=== PATIENT | male | born 1955 | race Caucasian/White ===

== ENCOUNTER 2017-10-06 16:41 | Inpatient (IN) | payer OTHER ==
[~2017-10-06] VITALS: Ht 182.9 cm; Wt 102.8 kg
[~2017-10-06 16:41] MED LIST: ACETLIQ12 PO; GABA300C11 GT; INSUINJ32 SC; LISI-646 PO; MULTCAP45 PO; NUTRTAB PO; OMEG500C5 PO; ONDA4TAB5 PO; PROC25RS RC
[2017-10-06] MEDS ORDERED: SODIUM CHLORIDE 0.9% 1,000 ML IVB ONE (17:09)
[2017-10-06] MEDS ORDERED: ACETAMINOPHEN 325 MG TAB PO ONE (17:15)
[2017-10-06 18:03] LABS: Basophils # (auto) 0 uL; Basophils % (auto) 0.2 % (0.0-2.0); Eosinophils # (auto) 0 uL; Hematocrit 33.2 % (41.0-53.0); Hemoglobin 10.4 g/dL (13.5-17.5); Lymphocytes # (auto) 0.2 uL; Lymphocytes % (auto) 1.3 % (10.0-50.0); Mean Corpuscular Hemoglobin 29.9 pg (28.0-32.0); Mean Corpuscular Hgb Conc. 31.4 g/dL (32.0-36.0); Mean Corpuscular Volume 95.5 fL (80.0-100.0); Monocytes # (auto) 1.2 uL; Neutrophils # (auto) 15.6 uL; Neutrophils % (auto) 91.5 % (37.0-80.0); Platelet Count (auto) 196 10^3/uL (140-450); Red Blood Cells 3.48 10^6/uL (4.5-5.90); Red Cell Distribution Width 16.8 % (11.8-14.3)
[2017-10-06] MEDS ORDERED: cefTRIAXone 1GM/10ml IVPUSH 10 ML IV ONE (18:15)
[2017-10-06 18:16] LABS: INR 1.12 (0.9-1.15); Partial Thromboplastin Time 30.3 sec (22.64-33.71); Prothrombin Time 12.2 sec (9.37-12.3)
[2017-10-06 18:31] LABS: Alanine Aminotransferase 10 U/L (16-61); Albumin 2.8 g/dL (3.4-5.0); Alkaline Phosphatase 92 U/L (45-117); Anion Gap 12 (5-15); Aspartate Aminotransferase 16 U/L (15-37); BUN/Creatinine Ratio 15.1; Bilirubin, Total 0.8 mg/dL (0.2-1.0); Blood Urea Nitrogen 41 mg/dL (7-18); Calcium 8.7 mg/dL (8.5-10.1); Carbon Dioxide 22 mmol/L (21-32); Chloride 104 mmol/L (98-107); GFR African American 30 mL/min; GFR Non-African American 25 mL/min; Glucose 203 mg/dL (74-106); Potassium 4.5 mmol/L (3.5-5.1); Sodium 138 mmol/L (136-145); Total Protein 7.8 g/dL (6.4-8.2)
[2017-10-06] MEDS ORDERED: SODIUM CHLORIDE 0.9% 1,000 ML IV ONE (19:30)
[2017-10-06 19:51] LABS: Urine Bacteria NONE SEEN /hpf (None Seen); Urine Blood 1+ /uL (Negative); Urine Specific Gravity 1.015 (1.001-1.035); Urine WBC 1131 /hpf (0 - 3)
[2017-10-06] MEDS ORDERED: HYDROcodone-ACET 5/325MG TAB PO PRN (22:15)
[2017-10-06] MEDS ORDERED: ONDANSETRON HCL 4 MG/2 ML VIAL IV PRN (22:15)
[2017-10-06] MEDS ORDERED: MORPHINE SULFATE 4 MG/ML SYR/VIAL IV PRN (22:15)
[2017-10-06] MEDS: SODIUM CHLORIDE 0.9% 1,000 ML IV SCH (23:29)
[2017-10-06] MEDS: ACETAMINOPHEN 500 MG TAB PO PRN (23:29)
[2017-10-06 23:33] VITALS: BP 141/73
[2017-10-07] MEDS ORDERED: DEXTROSE (50%) 50ML SYRG IV PRN (00:30)
[2017-10-07] MEDS ORDERED: VANCOMYCIN PER PHARMACY 0 MG IV SCH (00:30)
[2017-10-07] MEDS ORDERED: VANCOMYCIN 1GM/250ML 250 ML IV ONE (01:00)
[2017-10-07 05:28] VITALS: BP 150/84
[2017-10-07 05:52] LABS: Basophils # (auto) 0 uL; Basophils % (auto) 0.4 % (0.0-2.0); Eosinophils # (auto) 0 uL; Eosinophils % (auto) 0.1 % (0.0-7.0); Hematocrit 30.5 % (41.0-53.0); Hemoglobin 9.8 g/dL (13.5-17.5); Lymphocytes # (auto) 0.2 uL; Lymphocytes % (auto) 2.2 % (10.0-50.0); Mean Corpuscular Hemoglobin 30.6 pg (28.0-32.0); Mean Corpuscular Hgb Conc. 32.2 g/dL (32.0-36.0); Mean Corpuscular Volume 94.8 fL (80.0-100.0); Monocytes # (auto) 0.9 uL; Monocytes % (auto) 7.9 % (0.0-12.0); Neutrophils % (auto) 89.4 % (37.0-80.0); Nucleated Red Blood Cells % 0.1 %; Platelet Count (auto) 181 10^3/uL (140-450); Red Blood Cells 3.21 10^6/uL (4.5-5.90); Red Cell Distribution Width 16.4 % (11.8-14.3); White Blood Cell 11.1 10^3/uL (4.4-10.8)
[2017-10-07 06:14] LABS: BUN/Creatinine Ratio 15.6; Calcium 8.1 mg/dL (8.5-10.1); Potassium 4.1 mmol/L (3.5-5.1)
[2017-10-07] MEDS: PIPERACILLIN-TAZOB 2.25GM 50 ML IV SCH ×3 (06:24→17:41)
[2017-10-07] MEDS: ACCU-CHEK COMFORT CURVE STRIP VI SCH ×4 (06:24→22:17)
[2017-10-07] MEDS: ACETAMINOPHEN 500 MG TAB PO PRN ×2 (06:29→14:27)
[2017-10-07] MEDS: InsuLIN REG 1unit/0.01ml Soln (100units/ml) SC SCH ×4 (06:30→22:00)
[2017-10-07 09:00] VITALS: BP 118/75
[2017-10-07] MEDS: LISINOPRIL 10 MG TAB PO SCH (10:15)
[2017-10-07] MEDS: SODIUM CHLORIDE 0.9% 1,000 ML IV SCH (11:35)
[2017-10-07 13:00] VITALS: BP 137/69
[2017-10-07] MEDS ORDERED: ACETAMINOPHEN 500 MG TAB PO PRN (15:30)
[2017-10-07 17:00] VITALS: BP 124/56
[2017-10-07 22:00] VITALS: BP 142/79
[2017-10-08] MEDS: VANCOMYCIN 1,500 MG in D5W 5% 250 ML IV SCH (01:34)
[2017-10-08 05:00] VITALS: BP 142/75
[2017-10-08 05:46] LABS: Basophils # (auto) 0 uL; Basophils % (auto) 0.4 % (0.0-2.0); Eosinophils # (auto) 0.1 uL; Eosinophils % (auto) 0.8 % (0.0-7.0); Hematocrit 29.4 % (41.0-53.0); Hemoglobin 9.4 g/dL (13.5-17.5); Lymphocytes # (auto) 0.4 uL; Lymphocytes % (auto) 4.7 % (10.0-50.0); Mean Corpuscular Hemoglobin 30.3 pg (28.0-32.0); Mean Corpuscular Hgb Conc. 32.1 g/dL (32.0-36.0); Mean Corpuscular Volume 94.5 fL (80.0-100.0); Monocytes % (auto) 12.1 % (0.0-12.0); Neutrophils # (auto) 6.9 uL; Nucleated Red Blood Cells % 0.1 %; Platelet Count (auto) 148 10^3/uL (140-450); Red Blood Cells 3.11 10^6/uL (4.5-5.90); Red Cell Distribution Width 16.7 % (11.8-14.3); White Blood Cell 8.4 10^3/uL (4.4-10.8)
[2017-10-08] MEDS: PIPERACILLIN-TAZOB 2.25GM 50 ML IV SCH ×5 (05:58→23:39)
[2017-10-08 06:15] LABS: BUN/Creatinine Ratio 17.3; Calcium 8.1 mg/dL (8.5-10.1); Potassium 3.7 mmol/L (3.5-5.1)
[2017-10-08] MEDS: ACCU-CHEK COMFORT CURVE STRIP VI SCH ×4 (06:41→21:51)
[2017-10-08] MEDS: InsuLIN REG 1unit/0.01ml Soln (100units/ml) SC SCH ×4 (06:41→21:51)
[2017-10-08] MEDS: LISINOPRIL 10 MG TAB PO SCH (08:36)
[2017-10-08 08:42] VITALS: BP 138/79
[2017-10-08] MEDS: SODIUM CHLORIDE 0.9% 1,000 ML IV SCH ×2 (11:15)
[2017-10-08 13:06] VITALS: BP 157/73
[2017-10-08 16:20] LABS: Magnesium 1.8 mg/dL (1.6-2.6)
[2017-10-08 16:59] VITALS: BP 149/90
[2017-10-08] MEDS: LOPERAMIDE 2 MG/10ml ORAL soln PO PRN (21:52)
[2017-10-08 22:17] VITALS: BP 155/92
[2017-10-09] MEDS: LOPERAMIDE 2 MG/10ml ORAL soln PO PRN ×3 (01:29→09:57)
[2017-10-09] MEDS: VANCOMYCIN 1,500 MG in D5W 5% 250 ML IV SCH (01:29)
[2017-10-09] MEDS: SODIUM CHLORIDE 0.9% 1,000 ML IV SCH ×2 (03:51→16:55)
[2017-10-09 05:27] VITALS: BP 158/87
[2017-10-09 05:31] LABS: Basophils # (auto) 0 uL; Basophils % (auto) 0.6 % (0.0-2.0); Eosinophils # (auto) 0.2 uL; Eosinophils % (auto) 2.4 % (0.0-7.0); Hematocrit 28.2 % (41.0-53.0); Hemoglobin 9.1 g/dL (13.5-17.5); Lymphocytes # (auto) 0.4 uL; Lymphocytes % (auto) 5.8 % (10.0-50.0); Mean Corpuscular Hemoglobin 30.7 pg (28.0-32.0); Mean Corpuscular Hgb Conc. 32.2 g/dL (32.0-36.0); Mean Corpuscular Volume 95.3 fL (80.0-100.0); Monocytes # (auto) 0.9 uL; Monocytes % (auto) 12.3 % (0.0-12.0); Neutrophils # (auto) 5.9 uL; Neutrophils % (auto) 78.9 % (37.0-80.0); Nucleated Red Blood Cells % 0.1 %; Platelet Count (auto) 167 10^3/uL (140-450); Red Blood Cells 2.96 10^6/uL (4.5-5.90); Red Cell Distribution Width 16.8 % (11.8-14.3); White Blood Cell 7.4 10^3/uL (4.4-10.8)
[2017-10-09 05:59] LABS: Anion Gap 8 (5-15); BUN/Creatinine Ratio 16.4; Blood Urea Nitrogen 29 mg/dL (7-18); Calcium 7.8 mg/dL (8.5-10.1); Carbon Dioxide 21 mmol/L (21-32); Chloride 105 mmol/L (98-107); GFR African American 50 mL/min; GFR Non-African American 41 mL/min; Glucose 191 mg/dL (74-106); Potassium 3.2 mmol/L (3.5-5.1); Sodium 134 mmol/L (136-145)
[2017-10-09] MEDS: ACCU-CHEK COMFORT CURVE STRIP VI SCH ×3 (06:35→17:00)
[2017-10-09] MEDS: InsuLIN REG 1unit/0.01ml Soln (100units/ml) SC SCH ×3 (06:35→17:00)
[2017-10-09] MEDS: PIPERACILLIN-TAZOB 2.25GM 50 ML IV SCH ×3 (06:35→18:00)
[2017-10-09 08:00] VITALS: BP 123/72
[2017-10-09 09:00] VITALS: BP 123/72
[2017-10-09] MEDS: LISINOPRIL 10 MG TAB PO SCH (09:57)
[2017-10-09 13:00] VITALS: BP 152/95
[2017-10-09 15:19] VITALS: BP 123/72
== END 2017-10-09 17:58 | disposition home or self-care (01) | DRG 871 ==
LOC: ER 16:41 → TELE 16:42 → TELE-WESTW 23:06
PROVIDERS: ADMIT Nurse Practitioner Family; ATTEND Internal Medicine Geriatric Medicine
DX: A41.01 Sepsis due to Methicillin susceptible Staphylococcus aureus (principal); J18.1 Lobar pneumonia, unspecified organism; C78.7 Secondary malignant neoplasm of liver and intrahepatic bile duct; C78.00 Secondary malignant neoplasm of unspecified lung; E11.22 Type 2 diabetes mellitus with diabetic chronic kidney disease; E66.01 Morbid (severe) obesity due to excess calories; N39.0 Urinary tract infection, site not specified; D50.8 Other iron deficiency anemias; E86.0 Dehydration; I25.10 Atherosclerotic heart disease of native coronary artery without angina pectoris; I12.9 Hypertensive chronic kidney disease with stage 1 through stage 4 chronic kidney disease, or unspecified chronic kidney disease; I44.0 Atrioventricular block, first degree; I45.10 Unspecified right bundle-branch block; K21.9 Gastro-esophageal reflux disease without esophagitis; N18.3 Chronic kidney disease, stage 3 (moderate); Z79.4 Long term (current) use of insulin; Z79.899 Other long term (current) drug therapy; Z82.49 Family history of ischemic heart disease and other diseases of the circulatory system; Z85.038 Personal history of other malignant neoplasm of large intestine; Z90.49 Acquired absence of other specified parts of digestive tract; Z92.21 Personal history of antineoplastic chemotherapy; Z93.2 Ileostomy status; Z93.3 Colostomy status; Z68.30 Body mass index [BMI] 30.0-30.9, adult
CPT/HCPCS: 36415; 51702; 71045; 71250; 80048; 80053; 80202; 81001; 82962; 83036; 83605; 83735; 84484; 85025; 85610; 85730; 87040; 87077; 87086; 87088; 87147; 87186; 94761; 96361; 96374; J1815; J2543; J7060

== ENCOUNTER 2019-05-17 13:17 | Emergency (ER) | payer OTHER ==
[~2019-05-17] VITALS: Ht 182.9 cm; Wt 89.8 kg
[~2019-05-17 13:17] MED LIST changes: +ONDA-144 PO; -ONDA4TAB5 PO
[2019-05-17] MEDS ORDERED: MORPHINE SULFATE 4 MG/ML SYR/VIAL IV ONE (15:45)
[2019-05-17] MEDS ORDERED: ONDANSETRON HCL 4 MG/2 ML VIAL IV ONE (15:45)
[2019-05-17 17:03] LABS: Hematocrit 26.7 % (41.0-53.0); Hemoglobin 8.8 g/dL (13.5-17.5); Mean Corpuscular Hemoglobin 32.7 pg (28.0-32.0); Mean Corpuscular Hgb Conc. 32.9 g/dL (32.0-36.0); Mean Corpuscular Volume 99.5 fL (80.0-100.0); Platelet Count (auto) 310 10^3/uL (140-450); Red Blood Cells 2.68 10^6/uL (4.5-5.90); Red Cell Distribution Width 18.7 % (11.8-14.3); White Blood Cell 4.7 10^3/uL (4.4-10.8)
[2019-05-17 17:06] LABS: Band Neutrophils % (manual) 0; Basophils % (manual) 0 (0.0-2.0); Blast Cells 0; Eosinophils % (manual) 0 (0-7); Metamyelocytes % 0; Myelocytes % 0; Promyelocytes % 0; Reactive Lymphocytes 0
[2019-05-17 17:12] LABS: Albumin 2.8 g/dL (3.4-5.0); Calcium 8.6 mg/dL (8.5-10.1)
[2019-05-17 17:15] LABS: BUN/Creatinine Ratio 22.1; Bilirubin, Total 0.3 mg/dL (0.2-1.0); Total Protein 7.4 g/dL (6.4-8.2)
[2019-05-17 17:16] LABS: INR 1.15 (0.9-1.15); Partial Thromboplastin Time 29.1 sec (23.64-32.05)
[2019-05-17 17:18] LABS: Potassium 5.9 mmol/L (3.5-5.1)
[2019-05-17 18:11] LABS: Lymphocytes % (manual) 11 (10.0-50.0)
[2019-05-17 18:12] LABS: Monocytes % (manual) 25 (0-12)
[2019-05-17] MEDS ORDERED: SODIUM BICARBONATE 8.4 % INJ 50ML VIAL IV ONE (18:15)
[2019-05-17] MEDS ORDERED: ALBUTEROL SULF 2.5 MG/0.5ML(0.5%) NEB SOLN HHN ONE (18:15)
[2019-05-17] MEDS ORDERED: CALCIUM GLUC 4.65meq/50ml D5AE 50 ML IV ONE (18:15)
[2019-05-17 18:37] VITALS: BP 126/76
== END 2019-05-17 18:59 | disposition short-term general hospital (02) ==
LOC: ER 13:17
DX: S72.352A Displaced comminuted fracture of shaft of left femur, initial encounter for closed fracture (principal); E87.5 Hyperkalemia; E11.9 Type 2 diabetes mellitus without complications; I10 Essential (primary) hypertension; Z90.89 Acquired absence of other organs; Z79.4 Long term (current) use of insulin; Z79.899 Other long term (current) drug therapy; W22.8XXA Striking against or struck by other objects, initial encounter; Y93.89 Activity, other specified; Y92.89 Other specified places as the place of occurrence of the external cause; Y99.8 Other external cause status
CPT/HCPCS: 29505; 36415; 73562; 73700; 80053; 85007; 85027; 85610; 85730; 94640; 94761; 96374; 96375; 99285; J2270; J2405; J7611

== ENCOUNTER 2019-11-06 14:17 | Inpatient (IN) | payer OTHER ==
[~2019-11-06] VITALS: Ht 182.9 cm; Wt 66.5 kg
[~2019-11-06 14:17] MED LIST changes: +PIPERACILLIN-TAZOB 3.375GM 100 ML IV SCH
[2019-11-06] MEDS ORDERED: ASCORBIC ACID 500 MG TAB PO ONE (15:45)
[2019-11-06] MEDS ORDERED: ZINC SULFATE 220mg CAP or TAB PO ONE (15:45)
[2019-11-06] MEDS ORDERED: cefTRIAXone 1GM/50ML D5W 50 ML IV ONE (15:45)
[2019-11-06] MEDS ORDERED: AZITHROMYCIN 500MG/ 250ML 250 ML IV ONE (15:45)
[2019-11-06 15:55] LABS: Anion Gap 14 (5-15); BUN/Creatinine Ratio 22.4; Blood Urea Nitrogen 32 mg/dL (7-18); Calcium 8.8 mg/dL (8.5-10.1); Carbon Dioxide 17 mmol/L (21-32); Chloride 105 mmol/L (98-107); GFR African American 64 mL/min; GFR Non-African American 53 mL/min; Glucose 109 mg/dL (74-106); Magnesium 1.9 mg/dL (1.6-2.6); Potassium 4.6 mmol/L (3.5-5.1); Sodium 136 mmol/L (136-145)
[2019-11-06 15:59] LABS: Basophils # (auto) 0.1 10 ^3/uL (0-0.2); Basophils % (auto) 0.7 % (0.0-2.0); Eosinophils # (auto) 0.1 10 ^3/uL (0-0.8); Eosinophils % (auto) 0.7 % (0.0-7.0); Hematocrit 35.6 % (41.0-53.0); Hemoglobin 11.5 g/dL (13.5-17.5); INR 1.46 (0.9-1.15); Lymphocytes # (auto) 1.7 10 ^3/uL (0.4-5.4); Lymphocytes % (auto) 12.3 % (10.0-50.0); Mean Corpuscular Hemoglobin 29.8 pg (28.0-32.0); Mean Corpuscular Hgb Conc. 32.3 g/dL (32.0-36.0); Mean Corpuscular Volume 92.2 fL (80.0-100.0); Neutrophils % (auto) 79.3 % (37.0-80.0); Partial Thromboplastin Time 27.7 sec (23.64-32.05); Platelet Count (auto) 210 10^3/uL (140-450); Red Blood Cells 3.86 10^6/uL (4.5-5.90); Red Cell Distribution Width 19.7 % (11.8-14.3); White Blood Cell 13.9 10^3/uL (4.4-10.8)
[2019-11-06 16:11] LABS: Alanine Aminotransferase 38 U/L (16-61); Alkaline Phosphatase 1082 U/L (45-117); Aspartate Aminotransferase 122 U/L (15-37); Bilirubin, Total 1.2 mg/dL (0.2-1.0); Total Protein 6.9 g/dL (6.4-8.2)
[2019-11-06 16:47] LABS: Urine Bacteria FEW /hpf (None Seen); Urine Blood 2+ /uL (Negative); Urine Hyaline Cast FEW /lpf (0 - 2); Urine Specific Gravity 1.017 (1.001-1.035); Urine WBC 566 /hpf (0 - 3); Urine WBC Clumps PRESENT /hpf (None Seen)
[2019-11-06] MEDS ORDERED: VANCOMYCIN PER PHARMACY 0 MG IV SCH (17:30)
[2019-11-06] MEDS ORDERED: LACTATED RINGER S IV ONE (17:30)
[2019-11-06] MEDS ORDERED: MORPHINE SULF INJ 2 MG/ML SYRINGE 1ML IV PRN (17:30)
[2019-11-06] MEDS ORDERED: PIPERACILLIN-TAZOB 3.375GM 100 ML IV ONE (17:30)
[2019-11-06] MEDS ORDERED: NITROGLYCERIN 0.4 MG SL TAB SL PRN ×2 (17:30→22:00)
[2019-11-06] MEDS: FUROSEMIDE 20 MG/2 ML VIAL IV SCH (18:44)
[2019-11-06] MEDS: PIPERACILLIN-TAZOB 3.375GM 100 ML IV SCH (19:42)
[2019-11-06] MEDS: SODIUM CHLORIDE 0.9% 1,000 ML IV SCH (19:42)
--- NOTE | 2019-11-06 19:59 | NUR ---
Telemetry admit from [facility] admitted to Telemetry unit after SBAR received. Patient oriented to Nlelie worley RN, unit, room, bed, and unit policies regarding patient care and visiting hours. Patient now on continuous telemetry monitoring, tele box # [id number] and telemetry reading on arrival to unit is SR 94. Patient placed on bedside oxygen, weighed by bed scale and encouraged to call if they need something. All questions and concerns addressed, patient verbalized understanding. Note: Came per bed awake alert oriented x 4,not in respiratory distress, placed in the bed comfortably, vital signs checked.
[2019-11-06 20:15] VITALS: BP 140/87
--- NOTE | 2019-11-06 20:52 | NUR ---
Relayed to Shala Quevedo that no order for diet, and no pain med. for back pain, with order of consistent carb. diet and [place] 5/325mg.p.o one tab. every 8hours as needed.
[2019-11-06] MEDS ORDERED: LISI-646 PO (20:55)
[2019-11-06] MEDS ORDERED: METO-169 PO (20:55)
[2019-11-06] MEDS ORDERED: HYDR-4833 PO (20:56)
[2019-11-06] MEDS ORDERED: GABA300C10 PO (20:56)
[2019-11-06] MEDS: HYDROcodone-ACET 5/325MG TAB PO PRN (21:04)
--- NOTE | 2019-11-06 21:04 | NUR ---
Medicated with one tab. [place] 5/325mg.for back pain 12/29, and at 2204, seen asleep.
[2019-11-06] MEDS ORDERED: ONDANSETRON HCL 4 MG/2 ML VIAL IV PRN (22:00)
[2019-11-06] MEDS ORDERED: DEXTROSE (50%) 50ML SYRG IV PRN (22:00)
[2019-11-06] MEDS ORDERED: LORazepam 0.5 MG TAB PO PRN (22:00)
[2019-11-06] MEDS: VANCOMYCIN 1GM/250ML 250 ML IV SCH (22:20)
[2019-11-06] MEDS: METOPROLOL TARTRATE 25 MG TAB PO SCH (22:21)
[2019-11-07] MEDS: PIPERACILLIN-TAZOB 3.375GM 100 ML IV SCH ×3 (00:44→12:00)
[2019-11-07] MEDS: ACCU-CHEK COMFORT CURVE STRIP VI SCH ×4 (00:45→13:49)
[2019-11-07] MEDS: InsuLIN REG 1unit/0.01ml Soln (100units/ml) SC SCH ×4 (00:49→13:49)
[2019-11-07] MEDS: HYDROcodone-ACET 10/325MG TAB PO PRN ×2 (02:27→08:39)
--- NOTE | 2019-11-07 02:27 | NUR ---
Medicated with [place] 10/325mg.one tab..p.o for pain level of 10/10, at at 0327 seen patient asleep.
[2019-11-07 05:00] VITALS: BP 132/82
[2019-11-07] MEDS: HYDROcodone-ACET 5/325MG TAB PO PRN (05:07)
[2019-11-07 06:03] LABS: Basophils # (auto) 0.1 10 ^3/uL (0-0.2); Basophils % (auto) 0.6 % (0.0-2.0); Eosinophils # (auto) 0.2 10 ^3/uL (0-0.8); Eosinophils % (auto) 1.7 % (0.0-7.0); Hemoglobin 10.4 g/dL (13.5-17.5); Lymphocytes % (auto) 6.6 % (10.0-50.0); Mean Corpuscular Hemoglobin 29.5 pg (28.0-32.0); Mean Corpuscular Hgb Conc. 32.5 g/dL (32.0-36.0); Mean Corpuscular Volume 90.9 fL (80.0-100.0); Monocytes # (auto) 1.2 10 ^3/uL (0-1.3); Monocytes % (auto) 8.3 % (0.0-12.0); Neutrophils # (auto) 11.9 10 ^3/uL (1.6-8.6); Neutrophils % (auto) 82.8 % (37.0-80.0); Platelet Count (auto) 184 10^3/uL (140-450); Red Blood Cells 3.52 10^6/uL (4.5-5.90); Red Cell Distribution Width 19.4 % (11.8-14.3); White Blood Cell 14.4 10^3/uL (4.4-10.8)
[2019-11-07] MEDS: FUROSEMIDE 20 MG/2 ML VIAL IV SCH (06:09)
[2019-11-07 06:20] LABS: INR 1.49 (0.9-1.15); Partial Thromboplastin Time 34.4 sec (23.64-32.05)
[2019-11-07 06:23] LABS: Potassium 4.2 mmol/L (3.5-5.1)
[2019-11-07 06:44] LABS: Albumin 1.7 g/dL (3.4-5.0); BUN/Creatinine Ratio 24.3; Bilirubin, Total 1.2 mg/dL (0.2-1.0); Magnesium 1.8 mg/dL (1.6-2.6); Phosphorus 2.8 mg/dL (2.5-4.90); Total Protein 6.2 g/dL (6.4-8.2)
[2019-11-07] MEDS: SODIUM CHLORIDE 0.9% 1,000 ML IV SCH (06:50)
--- NOTE | 2019-11-07 07:30 | NUR ---
RECEIVED REPORT FROM NIGHT NURSE. PATIENT RESTING IN BED, NO DISTRESS NOTED. BED ALARM ON. WILL CONTINUE TO MONITOR.
--- NOTE | 2019-11-07 07:37 | NUR ---
Report given to Horacio Ramirez, patient is resting no distress.
[2019-11-07 09:00] VITALS: BP 110/76
[2019-11-07] MEDS ORDERED: ASPirin 81 mg TAB PO SCH (10:00)
[2019-11-07] MEDS ORDERED: ENOXAPARIN SOD 40 MG/0.4 ML SYRINGE SC SCH (10:00)
[2019-11-07] MEDS ORDERED: LISINOPRIL 10 MG TAB PO SCH (10:00)
[2019-11-07] MEDS ORDERED: DOCUSATE SOD 100 MG CAP PO SCH (10:00)
[2019-11-07] MEDS: METOPROLOL TARTRATE 25 MG TAB PO SCH (10:07)
[2019-11-07 13:00] VITALS: BP 99/63
--- NOTE | 2019-11-07 13:20 | NUR ---
PAGED CARPENTER STREETCAR SMOKE JUMPER.
--- NOTE | 2019-11-07 13:38 | NUR ---
SPOKE WITH MONO, IN CONSERVATION SCIENCE TEACHER. FAXED INFORMATION TO [facility].
[2019-11-07] MEDS: VANCOMYCIN 1GM/250ML 250 ML IV SCH (14:00)
--- NOTE | 2019-11-07 16:21 | NUR ---
SPOKE WITH MONO, ORTHOPEDIC PHYSICIAN. [facility] PATIENT GIVEN NAME AND NUMBER. #[phone]
--- NOTE | 2019-11-07 17:23 | NUR ---
Discharge instructions given as ordered. Encourage to follow up with PMD as instructed. All questions and concerns addressed. Patient verbalized understanding. Medication reconciliation form completed and copy given to patient. IV'S removed with catheters intact, pressure dressings applied. Telemetry unit returned to ICU. Patient taken to vehicle via wheelchair with all personal belongings, accompanied by staff and family member. No distress noted at time of departure.
--- NOTE | 2019-11-09 09:59 | NUR ---
Weekend marketing communications manager 11/07/19 1344 I received a page from nurse Ashley letting me know that this patient is discharging home and needs home health safety eval. I called [facility] and spoke with Charity-she will arrange home health through [facility]-I relayed this information to nurse Ramirez and provided her with phone number to give to patient. I faxed home health order to [facility].
== END 2019-11-07 17:26 | disposition home health service (06) | DRG 193 ==
LOC: ER 14:17 → TELE 14:18 → TELE-CENTR 20:02
PROVIDERS: ADMIT Hospitalist; ATTEND Hospitalist
DX: J18.9 Pneumonia, unspecified organism (principal); E43 Unspecified severe protein-calorie malnutrition; N17.0 Acute kidney failure with tubular necrosis; C78.00 Secondary malignant neoplasm of unspecified lung; C78.7 Secondary malignant neoplasm of liver and intrahepatic bile duct; Z68.1 Body mass index [BMI] 19.9 or less, adult; C26.9 Malignant neoplasm of ill-defined sites within the digestive system; E11.22 Type 2 diabetes mellitus with diabetic chronic kidney disease; I12.9 Hypertensive chronic kidney disease with stage 1 through stage 4 chronic kidney disease, or unspecified chronic kidney disease; N18.9 Chronic kidney disease, unspecified; Z96.653 Presence of artificial knee joint, bilateral; D63.8 Anemia in other chronic diseases classified elsewhere; Z79.899 Other long term (current) drug therapy; Z90.89 Acquired absence of other organs; Z82.49 Family history of ischemic heart disease and other diseases of the circulatory system; Z85.048 Personal history of other malignant neoplasm of rectum, rectosigmoid junction, and anus; D63.0 Anemia in neoplastic disease
CPT/HCPCS: 36415; 71045; 80053; 81001; 82962; 83605; 83735; 84100; 84484; 85025; 85610; 85730; 86850; 86900; 86901; 87040; 87086; 93005; G0378; J0696; J1815; J2543

== ENCOUNTER 2019-11-11 21:17 | Inpatient (IN) | payer OTHER ==
[~2019-11-11] VITALS: Ht 182.9 cm; Wt 138.0 kg
[~2019-11-11 21:17] MED LIST changes: -ACETLIQ12 PO; +GABA300C10 PO; -GABA300C11 GT; +HYDR-4833 PO; -INSUINJ32 SC; +METO-169 PO; -MULTCAP45 PO; -NUTRTAB PO; -OMEG500C5 PO; -ONDA-144 PO; -PIPERACILLIN-TAZOB 3.375GM 100 ML IV SCH; -PROC25RS RC
[2019-11-11 21:59] LABS: Basophils # (auto) 0.1 10 ^3/uL (0-0.2); Basophils % (auto) 0.7 % (0.0-2.0); Eosinophils # (auto) 0.1 10 ^3/uL (0-0.8); Eosinophils % (auto) 0.8 % (0.0-7.0); Hematocrit 33.7 % (41.0-53.0); Hemoglobin 10.7 g/dL (13.5-17.5); Lymphocytes % (auto) 17.7 % (10.0-50.0); Mean Corpuscular Hemoglobin 29.1 pg (28.0-32.0); Mean Corpuscular Hgb Conc. 31.7 g/dL (32.0-36.0); Mean Corpuscular Volume 91.6 fL (80.0-100.0); Monocytes # (auto) 0.8 10 ^3/uL (0-1.3); Neutrophils # (auto) 12.6 10 ^3/uL (1.6-8.6); Neutrophils % (auto) 75.8 % (37.0-80.0); Platelet Count (auto) 241 10^3/uL (140-450); Red Blood Cells 3.68 10^6/uL (4.5-5.90); Red Cell Distribution Width 19.6 % (11.8-14.3); White Blood Cell 16.7 10^3/uL (4.4-10.8)
[2019-11-11 22:15] LABS: Albumin 2.1 g/dL (3.4-5.0); Calcium 8.6 mg/dL (8.5-10.1); Potassium 4.8 mmol/L (3.5-5.1)
[2019-11-11 22:30] LABS: BUN/Creatinine Ratio 20.8; Bilirubin, Total 0.9 mg/dL (0.2-1.0); Total Protein 7.1 g/dL (6.4-8.2)
[2019-11-11] MEDS ORDERED: ONDANSETRON HCL 4 MG/2 ML VIAL IV ONE (22:30)
[2019-11-11] MEDS ORDERED: MORPHINE SULFATE 4 MG/ML SYR/VIAL IV ONE (22:30)
[2019-11-12] MEDS ORDERED: MORPHINE SULFATE 4 MG/ML SYR/VIAL IV ONE ×2 (01:30→05:00)
[2019-11-12] MEDS ORDERED: ONDANSETRON HCL 4 MG/2 ML VIAL IV ONE ×2 (01:30→05:00)
[2019-11-12 02:47] LABS: INR 1.4 (0.9-1.15); Partial Thromboplastin Time 35.1 sec (23.64-32.05)
[2019-11-12] MEDS ORDERED: SODIUM CHLORIDE 0.9% 500 ML IV ONE ×2 (06:45→07:00)
[2019-11-12] MEDS ORDERED: ACETAMINOPHEN 325 MG TAB PO PRN (09:30)
[2019-11-12] MEDS ORDERED: NITROGLYCERIN 0.4 MG SL TAB SL PRN (09:30)
[2019-11-12] MEDS ORDERED: DEXTROSE (50%) 50ML SYRG IV ONE (09:30)
[2019-11-12] MEDS ORDERED: HYDROcodone-ACET 5/325MG TAB PO PRN (09:30)
[2019-11-12] MEDS ORDERED: METOPROLOL SUCCINATE XL 50 MG TAB PO ONE (09:45)
[2019-11-12] MEDS ORDERED: cefTRIAXone 1GM/50ML D5W 50 ML IV ONE (09:45)
[2019-11-12] MEDS ORDERED: CLINDAMYCIN 600MG IV 50 ML IV ONE (09:45)
[2019-11-12] MEDS: SODIUM CHLORIDE 0.9% 1,000 ML IV SCH ×2 (09:51→23:02)
[2019-11-12] MEDS ORDERED: cefTRIAXone 1GM/50ML D5W 50 ML IV SCH ×2 (10:00)
[2019-11-12] MEDS: METOPROLOL SUCCINATE XL 50 MG TAB PO SCH (10:00)
[2019-11-12] MEDS: ONDANSETRON HCL 4 MG/2 ML VIAL IV PRN (10:06)
[2019-11-12] MEDS: MORPHINE SULF INJ 2 MG/ML SYRINGE 1ML IV PRN ×2 (10:07→13:32)
[2019-11-12 10:47] LABS: Basophils # (auto) 0.2 10 ^3/uL (0-0.2); Basophils % (auto) 0.9 % (0.0-2.0); Eosinophils # (auto) 0.2 10 ^3/uL (0-0.8); Eosinophils % (auto) 0.9 % (0.0-7.0); Hematocrit 35.5 % (41.0-53.0); Hemoglobin 10.9 g/dL (13.5-17.5); Lymphocytes % (auto) 17.4 % (10.0-50.0); Mean Corpuscular Hemoglobin 28.8 pg (28.0-32.0); Mean Corpuscular Hgb Conc. 30.6 g/dL (32.0-36.0); Mean Corpuscular Volume 94.1 fL (80.0-100.0); Monocytes # (auto) 0.9 10 ^3/uL (0-1.3); Monocytes % (auto) 5.3 % (0.0-12.0); Neutrophils # (auto) 13.1 10 ^3/uL (1.6-8.6); Neutrophils % (auto) 75.5 % (37.0-80.0); Platelet Count (auto) 193 10^3/uL (140-450); Red Blood Cells 3.77 10^6/uL (4.5-5.90); Red Cell Distribution Width 19.7 % (11.8-14.3); White Blood Cell 17.4 10^3/uL (4.4-10.8)
[2019-11-12] MEDS ORDERED: NOREPINEPHRINE 8 MG/250ML KIT 250 ML IV ONE (10:51)
[2019-11-12 10:53] LABS: Albumin 1.9 g/dL (3.4-5.0); Calcium 8.4 mg/dL (8.5-10.1); Magnesium 2.1 mg/dL (1.6-2.6); Potassium 4.9 mmol/L (3.5-5.1)
[2019-11-12 10:56] LABS: BUN/Creatinine Ratio 20.7; Bilirubin, Total 0.9 mg/dL (0.2-1.0); Total Protein 6.8 g/dL (6.4-8.2)
[2019-11-12] MEDS: NOREPINEPHRINE 8 MG/250ML KIT 250 ML IV SCH (11:10)
[2019-11-12] MEDS ORDERED: ACCU-CHEK COMFORT CURVE STRIP VI ONE (11:30)
[2019-11-12] MEDS ORDERED: InsuLIN REG 1unit/0.01ml Soln (100units/ml) SC ONE (11:30)
[2019-11-12] MEDS: GABAPENTIN 300 MG CAP PO SCH ×3 (11:52→22:07)
[2019-11-12] MEDS ORDERED: CLINDAMYCIN 600MG IV 50 ML IV SCH (14:00)
[2019-11-12] MEDS: LINEZOLID 600MG/300ML 300 ML IV SCH (22:07)
[2019-11-13] MEDS: MORPHINE SULF INJ 2 MG/ML SYRINGE 1ML IV PRN ×4 (01:32→18:51)
[2019-11-13] MEDS: PIPERACILLIN-TAZOB 2.25GM 50 ML IV SCH ×4 (05:30→18:30)
[2019-11-13] MEDS: GABAPENTIN 300 MG CAP PO SCH ×3 (05:30→23:11)
[2019-11-13 06:41] LABS: Basophils # (auto) 0.2 10 ^3/uL (0-0.2); Basophils % (auto) 0.8 % (0.0-2.0); Eosinophils # (auto) 0.2 10 ^3/uL (0-0.8); Eosinophils % (auto) 0.9 % (0.0-7.0); Hematocrit 33.4 % (41.0-53.0); Hemoglobin 10.6 g/dL (13.5-17.5); Lymphocytes # (auto) 2.2 10 ^3/uL (0.4-5.4); Lymphocytes % (auto) 11.2 % (10.0-50.0); Mean Corpuscular Hemoglobin 29.1 pg (28.0-32.0); Mean Corpuscular Hgb Conc. 31.7 g/dL (32.0-36.0); Monocytes # (auto) 1.4 10 ^3/uL (0-1.3); Monocytes % (auto) 7.3 % (0.0-12.0); Neutrophils # (auto) 15.8 10 ^3/uL (1.6-8.6); Neutrophils % (auto) 79.8 % (37.0-80.0); Platelet Count (auto) 250 10^3/uL (140-450); Red Blood Cells 3.63 10^6/uL (4.5-5.90); Red Cell Distribution Width 19.3 % (11.8-14.3); White Blood Cell 19.8 10^3/uL (4.4-10.8)
[2019-11-13] MEDS: NOREPINEPHRINE 8 MG/250ML KIT 250 ML IV SCH (07:00)
[2019-11-13 07:01] LABS: Albumin 1.8 g/dL (3.4-5.0); Calcium 8.4 mg/dL (8.5-10.1); Magnesium 2.1 mg/dL (1.6-2.6)
[2019-11-13 07:17] LABS: BUN/Creatinine Ratio 19.1; Bilirubin, Total 1.3 mg/dL (0.2-1.0); Total Protein 6.6 g/dL (6.4-8.2)
[2019-11-13 07:20] LABS: Potassium 5.6 mmol/L (3.5-5.1)
[2019-11-13] MEDS ORDERED: SODIUM ZIRCONIUM CYCL 10 GM PAK PO ONE (09:30)
[2019-11-13] MEDS: ONDANSETRON HCL 4 MG/2 ML VIAL IV PRN ×3 (09:52→18:51)
[2019-11-13] MEDS: METOPROLOL SUCCINATE XL 50 MG TAB PO SCH (10:00)
[2019-11-13] MEDS: LINEZOLID 600MG/300ML 300 ML IV SCH ×2 (10:36→23:11)
[2019-11-13] MEDS ORDERED: DEXTROSE (50%) 50ML SYRG IV ONE (12:15)
[2019-11-13] MEDS: SODIUM CHLORIDE 0.9% 1,000 ML IV SCH (13:27)
[2019-11-13] MEDS ORDERED: SODIUM BICARBONATE 50ML VIAL 100 ML in SOD CHL 0.45% 1,000 ML IV ONE (15:00)
[2019-11-13] MEDS ORDERED: ACCU-CHEK COMFORT CURVE STRIP VI ONE (17:00)
[2019-11-13] MEDS ORDERED: InsuLIN REG 1unit/0.01ml Soln (100units/ml) SC ONE (17:00)
[2019-11-13 20:51] LABS: Urine Bacteria NONE SEEN /hpf (None Seen); Urine Blood 2+ /uL (Negative); Urine Hyaline Cast FEW /lpf (0 - 2); Urine Specific Gravity 1.018 (1.001-1.035); Urine WBC 39 /hpf (0 - 3)
[2019-11-14] VITALS (27 sets, daily range): BP systolic 82–116; BP diastolic 46–67
[2019-11-14] MEDS: PIPERACILLIN-TAZOB 2.25GM 50 ML IV SCH ×4 (00:45→18:26)
--- NOTE | 2019-11-14 01:30 | NUR ---
OPENING NOTE RECEIVED REPORT FROM DAY SHIFT RN AND ASSUMED CARE OF PT. PT IS ASLEEP IN BED. VITAL SIGNS STABLE WITH NO S/S OF DISTRESS NOTED. 4 L NC APPLIED. RR EVEN AND UNLABORED. PT IS CONFUSED AND FORGETFUL AND REPEATING SOME OF THE SAME PHRASES. HE CAN STATE HIS NAME, , AND KNOWS HE IS IN THE HOSPITAL. OROPEZA CATHETER IN PLACE AND DRAINING APPROPRIATELY. LEVO RUNNING AT 8 MCG TO PORTACATH. IV FLUIDS AND ABX RUNNING TO RFA 22G. NO COMPLAINTS OF PAIN WHEN ASKED. WILL CONTINUE TO MONITOR AND ASSESS PT. Addendum: 11/15/19 at 0152 by CHICHO TOBAR RN RN DATE AND TIME OF THIS NOTE WAS SUPPOSED TO BE 11/14/2019 AT 1930.
[2019-11-14] MEDS: GABAPENTIN 300 MG CAP PO SCH ×3 (05:38→22:20)
[2019-11-14] MEDS: MORPHINE SULF INJ 2 MG/ML SYRINGE 1ML IV PRN ×3 (05:39→18:47)
[2019-11-14] MEDS: ONDANSETRON HCL 4 MG/2 ML VIAL IV PRN ×3 (05:39→18:52)
[2019-11-14 06:59] LABS: INR 1.4 (0.9-1.15); Partial Thromboplastin Time 36.9 sec (23.64-32.05)
[2019-11-14 07:02] LABS: Hematocrit 34.3 % (41.0-53.0); Mean Corpuscular Hemoglobin 29.6 pg (28.0-32.0); Mean Corpuscular Hgb Conc. 32.1 g/dL (32.0-36.0); Mean Corpuscular Volume 92.3 fL (80.0-100.0); Platelet Count (auto) 207 10^3/uL (140-450); Red Blood Cells 3.72 10^6/uL (4.5-5.90); White Blood Cell 18.7 10^3/uL (4.4-10.8)
[2019-11-14 07:08] LABS: Albumin 1.6 g/dL (3.4-5.0); Calcium 8.2 mg/dL (8.5-10.1); Potassium 4.9 mmol/L (3.5-5.1)
[2019-11-14 07:13] LABS: Red Cell Distribution Width 20.2 % (11.8-14.3)
[2019-11-14 07:14] LABS: Basophils % (manual) 0 (0.0-2.0); Blast Cells 0; Metamyelocytes % 0; Promyelocytes % 0; Reactive Lymphocytes 0
[2019-11-14 07:25] LABS: BUN/Creatinine Ratio 18.9; Bilirubin, Total 2.8 mg/dL (0.2-1.0); Total Protein 6.2 g/dL (6.4-8.2)
[2019-11-14] MEDS ORDERED: DEXTROSE (50%) 50ML SYRG IV PRN (07:30)
[2019-11-14] MEDS: METOPROLOL SUCCINATE XL 50 MG TAB PO SCH (07:56)
[2019-11-14] MEDS: LINEZOLID 600MG/300ML 300 ML IV SCH ×2 (07:56→22:20)
[2019-11-14 08:39] LABS: Band Neutrophils % (manual) 3; Eosinophils % (manual) 1 (0-7); Lymphocytes % (manual) 4 (10.0-50.0); Monocytes % (manual) 7 (0-12); Myelocytes % 1
--- NOTE | 2019-11-14 10:00 | NUR ---
WOUND CARE NOTE: IN TO SEE PATIENT AT THIS TIME PER WOUND CARE CONSULT REQUEST. PATIENT ADMITTED TO [facility] WITH DIAGNOSIS OF BLE CELLULITIS, SEPSIS. CURRENT FEMI SCORE ASSESSED AT 11. PATIENT IS RESTING ON ICU HOSPITAL BED IN ER BED 6. HE IS ICU STATUS, AWAITING PLACEMENT WHEN BED AVAILABLE. PATIENT NOTED TO HAVE WOUNDS TO SACRUM/BLE, WOUND CONSULT ORDERED. PATIENT IS ABLE TO ASSIST WITH HIS TURNING/REPOSITIONING. 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 HE IS STATUS POST CHEMO APPROXIMATELY ONE YEAR AGO. PATIENT HAS HYPERTENSION, DM2, CKD WITH ACUTE KIDNEY INJURY, BLE CELLULITIS. PATIENT HAS BEEN HAVING MULTIPLE EPISODES WITH INCONTINENT LOOSE STOOL, RENDERING HIM WITH MASD AND SKIN EROSION TO THE PERIANAL SKIN.WITH PATIENTS CA DIAGNOSIS, HE IS NOT A CANDIDATE FOR RECTAL TUBE PLACEMENT. PATIENT IS ALSO NOTED TO HAVE A LARGE DARK PURPLE DTI THAT IS INTACT ACROSS THE RIGHT AND LEFT SACRUM. PATIENT ALSO HAS AN INTACT DTI TO THE COCCYX. THESE WOUNDS ARE INTACT, NO BLISTERING NOTED. SKIN IS DARK PURPLE, WITH BRIGHT RED PERIWOUND WITH MASD. ZGUARD APPLIED TO SKIN ERODED PERIRECTAL AREAS, OPTIFOAM GENTLE SACRAL DRESSING APPLIED. RIGHT HIP HAS A TRAUMA BRUISE, WITH FADING PURPLE BRUISE NOTED. SKIN INTACT, BLANCHES. BLE IS DARK RED, WITH EDEMA NOTED FROM FOOT TO UPPER LAWSON/CALF. THERE ARE MULTIPLE EXCORIATIONS/SCRATCHES NOTED THAT ARE NOT OPEN. THERE IS LIGHT WEEPING NOTED OF THE TISSUES TO BLE AT THIS TIME. BOTH LEGS ELEVATED WITH PILLOWS, CHUX UNDER BOTH LEGS TO ABSORB WEEPING DRAINAGE. ADVISED BEDSIDE NURSE TO PROVIDE FREQUENT PERICARE, AVOIDING MASSAGE TO ANY PURPLE/MAROON SKIN AREAS, PROVIDE SIDE TO SIDE ONLY POSITIONING, AVOIDING SUPINE. PATIENT WOULD ALSO BENEFIT FROM SPECIALTY AIR BED/MATTRESS, BID/PRN APPLICATIONS OF ZGUARD TO SKIN EROSION OF PERIRECTAL SKIN, OPTIFOAM GENTLE SACRAL DRESSING, SKIN/WOUND CARE PLAN, DIETARY CONSULT, CONTINUED MONITORING BY WOUND CARE TEAM. Addendum: 11/14/19 at 1615 by Ammy Segura RN Amended: Links added.
--- NOTE | 2019-11-14 10:30 | NUR ---
WOUND CARE NOTE: TCB AIRBED ORDERED AT THIS TIME. PATIENT TO BE PLACED,PENDING DELIVERY BY [facility]. PATIENT TO BE SIDE TO SIDE POSITIONING ONLY, AVOIDING SUPINE POSITION.
[2019-11-14] MEDS: InsuLIN REG 1unit/0.01ml Soln (100units/ml) SC SCH ×3 (11:30→22:30)
[2019-11-14] MEDS: ACCU-CHEK COMFORT CURVE STRIP VI SCH ×3 (11:46→22:20)
[2019-11-14] MEDS: NOREPINEPHRINE 8 MG/250ML KIT 250 ML IV SCH (11:51)
[2019-11-14] MEDS: SODIUM BICARB 50ML SYR 50 ML in SOD CHL 0.45% 1,000 ML IV SCH (13:15)
--- NOTE | 2019-11-14 16:30 | NUR ---
Admit to ICU from [facility] admitted to ICU via rjeanne on cardiac cath lab technologist,AND O2 AT 4 LPM VIA N/C. Patient connected to ICU monitoring, weighed by bed scale, oriented to EVELIA PACHECO, RADHA primary RN, unit.
--- NOTE | 2019-11-14 22:25 | NUR ---
BM PT HAD LOOSE BROWN STOOL WHEN TURNED TO BE PLACED ON SPECIALTY MATTRESS.
--- NOTE | 2019-11-14 22:30 | NUR ---
SKIN/SPECIALTY MATTRESS SPECIALTY MATTRESS ARRIVED FROM [facility]. PLACED PT ON MATTRESS. FULL APRIL CHANGE DONE. SKIN ASSESSED WITH NO NEW CHANGES AT THIS TIME. Z GUARD AND OPTIFOAM APPLIED TO SACRAL AREA WHERE WOUNDS WERE NOTED.
--- NOTE | 2019-11-14 22:45 | NUR ---
EMANUEL BUCKNER THE PA WHO WORKS WITH CAME TO ASSESS PT AND UPDATE PLAN OF CARE. NO NEW ORDERS RECEIVED. SHE DID GIVE A COPY OF PTS PREVIOUS PET SCAN BEFORE ADMISSION- PLACED IN HARD CHART.
[2019-11-15] VITALS (93 sets, daily range): BP systolic 73–122; BP diastolic 43–74
[2019-11-15] MEDS: PIPERACILLIN-TAZOB 2.25GM 50 ML IV SCH ×4 (00:20→17:26)
[2019-11-15] MEDS: SODIUM BICARB 50ML SYR 50 ML in SOD CHL 0.45% 1,000 ML IV SCH (02:30)
--- NOTE | 2019-11-15 03:30 | NUR ---
IV ATTEMPTED THREE TIMES TO GAIN ANOTHER IV ACCESS USING CLEAN TECHNIQUE. WAS UNSUCCESSFUL. CURRENT ACCESS OK TO USE AND HAS GOOD RETURN. PT TOLERATED WELL WITH NO DISTRESS.
--- NOTE | 2019-11-15 04:00 | NUR ---
PT CARE GAVE PT BASIN BATH. APPLIED MOISTURE BARRIER CREAM TO AREAS OF DRYNESS. PT HAD ANOTHER LOOSE, BROWN BM WHILE CLEANING. NEW CHUCKS AND GOWN APPLIED.
[2019-11-15 04:17] LABS: Hematocrit 36.3 % (41.0-53.0); Hemoglobin 11.8 g/dL (13.5-17.5); Mean Corpuscular Hemoglobin 29.8 pg (28.0-32.0); Mean Corpuscular Hgb Conc. 32.6 g/dL (32.0-36.0); Mean Corpuscular Volume 91.5 fL (80.0-100.0); Platelet Count (auto) 202 10^3/uL (140-450); Red Blood Cells 3.97 10^6/uL (4.5-5.90); Red Cell Distribution Width 19.9 % (11.8-14.3)
[2019-11-15 04:26] LABS: Basophils % (manual) 0 (0.0-2.0); Blast Cells 0; Metamyelocytes % 0; Promyelocytes % 0; Reactive Lymphocytes 0
[2019-11-15 04:33] LABS: INR 1.47 (0.9-1.15); Partial Thromboplastin Time 36.8 sec (23.64-32.05)
[2019-11-15 05:04] LABS: Albumin 1.6 g/dL (3.4-5.0); BUN/Creatinine Ratio 18.9; Bilirubin, Total 3.5 mg/dL (0.2-1.0); Calcium 8.2 mg/dL (8.5-10.1); Magnesium 1.8 mg/dL (1.6-2.6); Total Protein 6.5 g/dL (6.4-8.2)
[2019-11-15] MEDS: GABAPENTIN 300 MG CAP PO SCH ×3 (06:00→21:31)
[2019-11-15 06:24] LABS: Band Neutrophils % (manual) 4; Eosinophils % (manual) 2 (0-7); Lymphocytes % (manual) 3 (10.0-50.0); Monocytes % (manual) 10 (0-12); Myelocytes % 1
[2019-11-15] MEDS: ACCU-CHEK COMFORT CURVE STRIP VI SCH ×4 (06:30→21:32)
[2019-11-15] MEDS: InsuLIN REG 1unit/0.01ml Soln (100units/ml) SC SCH ×4 (06:30→21:32)
--- NOTE | 2019-11-15 08:10 | NUR ---
Opening Shift Note Assumed care of patient, patient sleeping, woke up by calling his name, awake and alert. No S/S of distress/SOB or pain. Instructed on POC and to call for assist PRN, will continue to monitor for changes Q1hr and PRN. Patient stated that feeling hungry, sitting up on the bed for having breakfast.
--- NOTE | 2019-11-15 08:45 | NUR ---
Dr. Wiley at the bedside, seen and examined patient at this time. Received new orders, will carry out.
--- NOTE | 2019-11-15 09:05 | NUR ---
Per Dr. Wiley, will start IV after finishing current IV fluid, and will notify Dr. Yan regarding MD stop IV Zyvox due to Volume, possible start PO Zyvox if Dr. Yan agree.
--- NOTE | 2019-11-15 09:07 | NUR ---
Patient had breakfast around 25%, no N/V noted.
--- NOTE | 2019-11-15 09:15 | NUR ---
Tried insertion PIV twice under vein finder, couldn't get PIV. Dressing PIV at right AC at this time. Will continue to monitor.
--- NOTE | 2019-11-15 11:24 | NUR ---
Dr. Yan at the bedside, seen and examined patient at this time, plan of care discussed with patient, will continue to monitor and care. Will call family to update plan of care later.
--- NOTE | 2019-11-15 13:00 | NUR ---
Patient had Lunch around 10%, no N/V noted.
[2019-11-15] MEDS: SODIUM CHLORIDE 0.9% 1,000 ML IV SCH (13:49)
--- NOTE | 2019-11-15 15:00 | NUR ---
Patient able to take a nap.
[2019-11-15] MEDS: NOREPINEPHRINE 8 MG/250ML KIT 250 ML IV SCH (17:28)
--- NOTE | 2019-11-15 17:43 | NUR ---
Levophed at 4 mcg/kg/min, [id number], HR 70-80/min with SR, on O2 NC 3 LPM, O2 saturation 98%, no complaining of pain noted. No fever noted.
--- NOTE | 2019-11-15 20:00 | NUR ---
OPENING SHIFT NOTE PATIENT RECEIVED WITH EYES CLOSED, AWAKENED WHEN CALLED BY NAME AND NOTED TO WAKE UP CONFUSED PER REPORT RECEIVED. PATIENT IS A&OX2 AT THIS TIME, WILL CONTINUE TO REASSESS.COMPLETE PHYSICAL ASSESSMENT DONE : SEE INTERVENTIONS, WHEN PATIENT TURNED TO ASSESS FOR SKIN INTEGRITY, PT NOTED TO HAVE EPISODE OF SOFT, BROWN BOWEL MOVEMENT, PERINEAL AREA IS MACERATED/RED AND MOIST. TESTICLES ARE EDEMATOUS AND RED, COCCYX IS PURPLE: NON BLANCHABLE REDNESS AND RIGHT HIP NOTED TO HAVE SMALL DT. AFFECTED AREAS CLEANSED, PATTED DRY AND ZGUARD BARRIER CREAM AND OPTIFOAM APPLIED TO AREA. PT REPOSITIONED IN BED FOR COMFORT/PRESSURE RELIEF. UPDATED PT ON POC. LEFT UPPER CHEST PORT A CATH INFUSING NS AT 75CC/HR AND LEVOPHED AT 6MCG : SEE IV SPREADSHEET. CONTINUE MONITORING.
[2019-11-15] MEDS: MORPHINE SULF INJ 2 MG/ML SYRINGE 1ML IV PRN (21:30)
[2019-11-15] MEDS: LINEZOLID 600MG TABLET PO SCH (21:31)
[2019-11-16] VITALS (91 sets, daily range): BP systolic 85–122; BP diastolic 54–78
[2019-11-16] MEDS: PIPERACILLIN-TAZOB 2.25GM 50 ML IV SCH ×4 (00:45→18:51)
[2019-11-16 03:41] LABS: Hematocrit 38.2 % (41.0-53.0); Hemoglobin 11.5 g/dL (13.5-17.5); Mean Corpuscular Hemoglobin 29.4 pg (28.0-32.0); Mean Corpuscular Hgb Conc. 30.1 g/dL (32.0-36.0); Mean Corpuscular Volume 97.7 fL (80.0-100.0); Platelet Count (auto) 206 10^3/uL (140-450); Red Blood Cells 3.91 10^6/uL (4.5-5.90); White Blood Cell 21.8 10^3/uL (4.4-10.8)
[2019-11-16 03:44] LABS: Red Cell Distribution Width 20.9 % (11.8-14.3)
[2019-11-16 03:45] LABS: Basophils % (manual) 0 (0.0-2.0); Blast Cells 0; Metamyelocytes % 0; Promyelocytes % 0; Reactive Lymphocytes 0
[2019-11-16 03:48] LABS: Albumin 1.4 g/dL (3.4-5.0); Calcium 8.2 mg/dL (8.5-10.1); Magnesium 1.9 mg/dL (1.6-2.6); Potassium 4.9 mmol/L (3.5-5.1)
[2019-11-16 04:03] LABS: BUN/Creatinine Ratio 20.3; Bilirubin, Total 4.3 mg/dL (0.2-1.0); Total Protein 5.9 g/dL (6.4-8.2)
[2019-11-16 05:17] LABS: Eosinophils % (manual) 1 (0-7); Lymphocytes % (manual) 10 (10.0-50.0); Monocytes % (manual) 5 (0-12)
[2019-11-16 05:18] LABS: Band Neutrophils % (manual) 10; Myelocytes % 1
--- NOTE | 2019-11-16 05:30 | NUR ---
AM CARE PT HAD A SECOND EPISODE OF BOWEL INCONTINENCE, PERINEAL AREA CLEANSED, PATTED DRY, ZGUARD BARRIER CREAM APPLIED AND NEW OPTIFOAM PLACED TO COCCYX/SACRAL AREA. PARTIAL BED BATH PROVIDED, COMPLETE BED BATH DONE: SKIN REASSESSED FOR CHANGES: NO CHANGES NOTED. NEW GOWN PLACED ON PT, AND REPOSITIONED FOR COMFORT/PRESSURE RELIEF. PT TOLERATED ACTIVITY WELL.
[2019-11-16] MEDS: GABAPENTIN 300 MG CAP PO SCH ×2 (06:44→21:27)
[2019-11-16] MEDS: InsuLIN REG 1unit/0.01ml Soln (100units/ml) SC SCH ×4 (06:45→21:34)
[2019-11-16] MEDS: ACCU-CHEK COMFORT CURVE STRIP VI SCH ×4 (06:45→21:34)
[2019-11-16] MEDS: SODIUM CHLORIDE 0.9% 1,000 ML IV SCH ×3 (06:46→18:52)
--- NOTE | 2019-11-16 07:12 | NUR ---
REPORT GIVEN TO DAY SHIFT RN LINA PT CURRENTLY RESTING WITH EYES CLOSED, NO S/S OF PAIN OR DISTRESS. ON 3L NC O2 SAT 100, ON LEVOPHED GTT AT 10 MCG/KG/MIN WITH BP 115/70.
--- NOTE | 2019-11-16 07:45 | NUR ---
OPENING SHIFT NOTE REPORT RECEIVED FROM INCIDENT RESPONSE SPECIALIST RN, MORNING ASSESSMENT PERFORMED AND DOCUMENTED. PATIENT RESTING IN BED WITH EYES CLOSED, VSS AND DOCUMENTED. UPON ASSESSMENT, PATIENT OPENED EYES AND ALERT AND ORIENTED X3 WITH NOTED FATIGUE. PATIENT TURNED TO SIDE TO MAINTAIN SKIN INTEGRITY AND WILL MAINTAIN PATIENT IN LEFT/RIGHT POSITION. PATIENT EDUCTED ON NEED TO TURN SIDE TO SIDE AND PATIENT VERBALIZED UNDERSTANDING. OROPEZA CATHETER PATENT AND DRAINING ROXIE/YELLOW URINE WITH SEDIMENT TO GRAVITY, FALL AND SAFETY PRECAUTIONS IN PLACE, WILL CONTINUE TO MONITOR.
--- NOTE | 2019-11-16 09:20 | NUR ---
SPOKE WITH DR EMANUEL CASTELLANOS NOTIFIED OF PATIENT'S ADMISSION AND HIS ELECTRIC BLANKET WIRER ROUNDING ON HIM THIS WEEKEND WELL MORNING LABS SPECIFICALLY INCREASING WBC. NO ORDERS AT THIS TIME - DR CASTELLANOS REPORTED "NOTHING TO DO UNTIL HE IS DISCHARGED".
[2019-11-16] MEDS: NOREPINEPHRINE 8 MG/250ML KIT 250 ML IV SCH (10:30)
--- NOTE | 2019-11-16 11:15 | NUR ---
LATE MED ADMINISTRATION CONTACT PHARMACY REGARDING LINEZOID AND MED PYXIS OUT - PER PHARMACISTS "YASMEEN IS ON HER WAY TO FILL". WILL ADMINISTER SOON RECEIVED FROM PHARMACY.
[2019-11-16] MEDS: LINEZOLID 600MG TABLET PO SCH ×2 (11:24→21:28)
--- NOTE | 2019-11-16 11:24 | NUR ---
MEDICATION HELD CONTACT PHARMACY ONCE AGAIN REGARDING LINEZOID - HAVE NOT RECEIVED MEDICATION WILL HOLD AND NOTIFY MD. ARI LEVINE DUE, WILL ADMINISTER.
--- NOTE | 2019-11-16 13:41 | NUR ---
Nutrition Assessment Notes Please refer to link for full assessment notes. Est Energy needs: 9976-6784 kcals (20-23 kcal/kgBW) Est Protein needs: 110-138 gms/day (1.2-1.5 gm/kgBW) d/t wound Will continue to monitor and reassess prn. Addendum: 11/16/19 at [address] Amended: Links added.
--- NOTE | 2019-11-16 14:52 | NUR ---
LUNCH REFUSAL PATIENT AWAKEN TO EAT LUNCH, PATIENT REFUSED AT THIS TIME, COMFORT AND TURN PERFORMED TO MAINTAIN SKIN INTEGRITY.
--- NOTE | 2019-11-16 17:03 | NUR ---
assessment Patient is a 64 year old male in ICU. Per patients Velma prior to admission patient lived home with her and functioned with assistance. Patient has a fww and a wheelchair for home use. Patients PCP is Dr Rodriguez. Per Velma she and family help patient at home. Per Velma patients legs were swelling and he was not looking well so she drove patient to ER and he was admitted. I informed Velma patients post discharge needs to be determined prior to discharge. Velma verbalized understanding. Addendum: 11/16/19 at 1707 by Adriana MOSCOSO Amended: Links added.
--- NOTE | 2019-11-16 18:49 | NUR ---
BM/COMFORT PATIENT CLEANSED OF SMALL SOFT BROWN STOOL, COMPLETE BEDDING CHANGED, WOUND CARE TO SACRUM PERFORMED - PATIENT TOLERATED WELL.
--- NOTE | 2019-11-16 19:30 | NUR ---
Opening Shift Note Report received from day shift RN. POC reviewed. Pt laying in bed complaining of pain in mouth, upon assessment sores noted in mouth. Will call MD and inform. Full assessment done, see interventions. Pt alert and oriented times four, able to answer all questions appropriately. Bilateral lower leg edema with weeping noted. Scrotal edema noted and weeping. Turning pt side to side to prevent more skin breakdown. Pt verbalized understanding of the need to turn. Very poor appetite. Calloway catheter intact draining to gravity, free of kinks. Bed locked in lowest position. Pt in full view of RN.
--- NOTE | 2019-11-16 20:00 | NUR ---
Called MD to update on pt status and for orders. Awaiting return call.
--- NOTE | 2019-11-16 20:30 | NUR ---
MD returned call. Dr. Yan called back and informed of sores noted in patient's mouth and pain. Notified of poor appetite possibly related to painful sores in mouth. MD updated on pt current status. New orders received.
[2019-11-16] MEDS: NYSTATIN (MOUTH-THROAT) 500,000 UNITS/5 ML SUSP MT SCH (21:27)
[2019-11-17] VITALS (80 sets, daily range): BP systolic 69–126; BP diastolic 42–78
[2019-11-17] MEDS: NOREPINEPHRINE 8 MG/250ML KIT 250 ML IV SCH (02:53)
--- NOTE | 2019-11-17 03:00 | NUR ---
Pt refused labs half way through lab draw. senior telecommunications technician only able to draw CBC.
--- NOTE | 2019-11-17 04:00 | NUR ---
Pt complaining of pain 04/30. Morphine given per MD order.
[2019-11-17] MEDS: MORPHINE SULF INJ 2 MG/ML SYRINGE 1ML IV PRN ×3 (04:01→22:05)
[2019-11-17 04:21] LABS: BUN/Creatinine Ratio 21.1; Calcium 8.1 mg/dL (8.5-10.1); Magnesium 1.8 mg/dL (1.6-2.6); Potassium 5.4 mmol/L (3.5-5.1)
--- NOTE | 2019-11-17 04:30 | NUR ---
Cares Full linen change performed with bed bath. Pt had small soft brown BM. Cleansed pt. Pt weeping under scrotum and bilateral lower legs.
[2019-11-17] MEDS: NYSTATIN (MOUTH-THROAT) 500,000 UNITS/5 ML SUSP MT SCH ×4 (05:45→21:28)
[2019-11-17] MEDS: InsuLIN REG 1unit/0.01ml Soln (100units/ml) SC SCH ×4 (05:54→22:00)
[2019-11-17] MEDS: ACCU-CHEK COMFORT CURVE STRIP VI SCH ×4 (05:55→22:00)
[2019-11-17] MEDS: PIPERACILLIN-TAZOB 2.25GM 50 ML IV SCH ×4 (06:14→17:43)
--- NOTE | 2019-11-17 06:20 | NUR ---
Family called for update. All questions and concerns addressed at this time.
--- NOTE | 2019-11-17 09:55 | NUR ---
HOSPITALIST AT BEDSIDE DR MARINELLI UPDATED ON PATIENT'S STATUS, REFUSAL FOR CONTINUED LAB DRAW PRIOR TO SHIFT CHANGE (CBC), VS AND NEED TO INCREASE LEVOPHED TO KEEP MAP OVER 65 AND POOR APPETITE WITH POSSIBLY UNABLE TO SWALLOW MORNING PILLS. MORNING LABS ALSO DISCUSSED WITH PATIENT. DR MARINELLI VERBALIZED UNDERSTANDING. DR MARINELLI ASSESSED PATIENT'S LOWER EXTREMITY SWELLING AND SCROTUM. DR MARINELLI DISCUSSED PLAN OF CARE WITH PATIENT, PATIENT NOTED TO BE FATIGUED AND REQUESTED DR MARINELLI SPEAK WITH . ORDERS RECEIVED FOR MAGNESIUM REPLACEMENT AND PROPHYLACTIC BLOOD THINNER.
[2019-11-17] MEDS: GABAPENTIN 300 MG CAP PO SCH ×3 (10:00→21:37)
[2019-11-17] MEDS: LINEZOLID 600MG TABLET PO SCH ×3 (10:00→21:36)
--- NOTE | 2019-11-17 10:24 | NUR ---
COMFORT/MEDICATION/BREAKFAST REFUSAL PATIENT REPOSITIONED FOR COMFORT RIGHT TO LEFT ONLY TO MAINTAIN SKIN INTEGRITY - PATIENT REFUSED TURNING BUT AFTER EXTENSIVE EDUCATION ON REASONS TO HELP SACRUM HEAL, HE AGREED TO TURNING. ALSO, PATIENT WAS ASSISTED WITH ORAL CARE, TOOTH BRUSHING AND MOUTH RISE - PATIENT NOTABLY WEAK AND FATIGUED, UNABLE TO HOLD A CUP WITH BOTH HANDS. PATIENT REFUSED BREAKFAST AND ONLY TOOK ONE SIP OF ORANGE JUICE WELL NEURONTIN TABLET DUE AT 1000, MD AWARE. PATIENT FACE AND HAIR COMBED, HE TOLERATED WELL.
[2019-11-17] MEDS: ENOXAPARIN SOD 30 MG/0.3 ML SYRINGE SC SCH ×2 (11:53→12:11)
--- NOTE | 2019-11-17 12:12 | NUR ---
MEDICATION REFUSAL PATIENT REFUSING LOVENOX INJECTION, WHEN EDUCATED ON MEDICATION NEED, PATIENT SHOUTED "NO". MEDICATION RETURNED TO PYXS. Addendum: 11/17/19 at 1217 by Mary Carmen Robles RN PAGED HOSPITALIST DR SAEZ TO NOTIFY, AWAITING RESPONSE.
[2019-11-17] MEDS: MAGNESIUM SULFATE 1GM/100ML 100 ML IV SCH ×2 (13:22→14:30)
--- NOTE | 2019-11-17 13:31 | NUR ---
PULLING BP CUFF OFF PATIENT PULLING BP CUFF OFF WANTING IT REMOVED. PATIENT EDUCATED ON NEED TO KEEP CUFF ON IN ORDER TO MONITOR BP WHILE ON VASOPRESSOR. PATIENT VERBALIZED "ILL CUT IT OFF". BLOOD PRESSURE CUFF READJUSTED FOR COMFORT, PATIENT CONTINUED TO VERBALIZED REFUSAL. BP REMAINED ON, WILL NOTIFY MD. PATIENT CURRENTLY ON 8 MCG/HR OF LEVOPHED WITH SBP IN THE 80'S - 90'S WITH A GOAL OF KEEPING MAP OVER 65.
--- NOTE | 2019-11-17 14:15 | NUR ---
RETURN FAMILY CALL Family of JOANNE CAST updated on patient's status and condition after password verification. All questions and concerns addressed. Velma patient's spouse verbalized understanding. Call was transferred to portable phone and Velma able to speak with patient words of encouragement as she is aware patient has been refusing services. She also reported patient uses walker at home.
--- NOTE | 2019-11-17 16:36 | NUR ---
COMFORT COMPLETE BEDDING CHANGED, AND WOULD CARE PROVIDED TO SACRUM AND VICK RECTAL/SCROTUM CARE. AREA CLEANSED WITH SOAP AND WATER, WOUND CLEANSER AND ZGUARD APPLIED TO CONTACT DERMITIS REDDENED AREAS WITH OPTIFOAM TO SACRAL WOUND. SACRAL WOUND PURPLE WITH TWO AREAS OF SKIN TEAR BLEEDING. BILATERAL LOWER EXTREMITIES WEEPING WELL AND CHUX CHANGED WITH PILLOWS TO OFF LOAD HEELS. PATIENT TURNED FOR COMFORT AND TO MAINTAIN SKIN INTEGRITY - PATIENT ON SPECIALTY MATTRESS. PATIENT TOLERATED WELL AND MEDICATED ORDERED BY MD PRIOR TO PROVIDING CARE. CALL LIGHT AND ALL PERSONAL BELONGINGS WITHIN REACH, BED IN LOWEST POSITION, FALL AND SAFETY PRECAUTIONS IN PLACE.
[2019-11-17] MEDS: SODIUM CHLORIDE 0.9% 1,000 ML IV SCH (17:43)
--- NOTE | 2019-11-17 21:38 | NUR ---
MEDICATION REFUSAL AFTER GIVING PATIENT MEDICATION PILLS WITH WATER, PT SPIT THEM OUT AND REFUSED THEM, AFTER WILLINGLY TAKING THEM. EDUCATED PT ON NEED TO TAKE MEDICATIONS. PT REFUSED. PILLS WASTED.
[2019-11-18] VITALS (84 sets, daily range): BP systolic 69–156; BP diastolic 37–133
[2019-11-18] MEDS: MORPHINE SULF INJ 2 MG/ML SYRINGE 1ML IV PRN ×3 (04:30→15:30)
--- NOTE | 2019-11-18 04:30 | NUR ---
Cares Pt given complete bed bath and linen change. Bilateral lower leg edema with weeping. DTI to sacrum cleansed and z guard applied. Slightly open now with blood noted. frequent repositioning being done. Oral care rendered
[2019-11-18 04:53] LABS: Hematocrit 39.5 % (41.0-53.0); Hemoglobin 12.4 g/dL (13.5-17.5); Mean Corpuscular Hemoglobin 29.4 pg (28.0-32.0); Mean Corpuscular Hgb Conc. 31.3 g/dL (32.0-36.0); Mean Corpuscular Volume 93.9 fL (80.0-100.0); Platelet Count (auto) 198 10^3/uL (140-450); Red Blood Cells 4.21 10^6/uL (4.5-5.90); Red Cell Distribution Width 20.3 % (11.8-14.3); White Blood Cell 22.9 10^3/uL (4.4-10.8)
[2019-11-18 04:55] LABS: Basophils % (manual) 0 (0.0-2.0); Blast Cells 0; Myelocytes % 0; Promyelocytes % 0; Reactive Lymphocytes 0
[2019-11-18 05:08] LABS: BUN/Creatinine Ratio 21.3; Calcium 8.6 mg/dL (8.5-10.1); Potassium 5.3 mmol/L (3.5-5.1)
[2019-11-18 05:12] LABS: Band Neutrophils % (manual) 4; Eosinophils % (manual) 2 (0-7); Lymphocytes % (manual) 6 (10.0-50.0); Metamyelocytes % 1; Monocytes % (manual) 3 (0-12)
[2019-11-18] MEDS: NYSTATIN (MOUTH-THROAT) 500,000 UNITS/5 ML SUSP MT SCH ×4 (06:00→21:56)
[2019-11-18] MEDS: PIPERACILLIN-TAZOB 2.25GM 50 ML IV SCH ×4 (06:00→17:51)
[2019-11-18] MEDS: InsuLIN REG 1unit/0.01ml Soln (100units/ml) SC SCH ×4 (06:46→22:11)
[2019-11-18] MEDS: ACCU-CHEK COMFORT CURVE STRIP VI SCH ×4 (06:46→22:11)
--- NOTE | 2019-11-18 07:45 | NUR ---
OPENING SHIFT NOTE: Received report from NOC RNMary. Assumed care of patient. Patient received on specialty bed, connected to bedside monitor, no s/s of distress noted. Patient is A&Ox4, denies pain. Patient on RA with O2 sats > 95%. Patient on levophed at 12mcg/hr, NS at 75ml/hr running to left upper chest jose l cath. Patient with durham catheter draining dark edison UOP. Dr Baires Nephro just seen patient and is inputting orders. Patient with weeping legs to bilateral lower extremities, chux pads with minimal serous drainage noted. Bed in lowest position, call light within reach. Updated on plan of care. Will continue to monitor q1hr/PRN.
[2019-11-18] MEDS: NOREPINEPHRINE 8 MG/250ML KIT 250 ML IV SCH (08:00)
[2019-11-18] MEDS: ALBUMIN 25% 100 ML IV SCH ×2 (08:28→15:30)
[2019-11-18] MEDS: SODIUM BICARBONATE 50ML VIAL 150 ML in D5W 5% 1,000 ML IV SCH (09:24)
[2019-11-18] MEDS: BUMETANIDE INJECTION 25 MG in GIVE UN-DILUTED 0 ML IV SCH (09:24)
--- NOTE | 2019-11-18 09:40 | NUR ---
Offer to assist patient with eating breakfast. Patient stating he doesn't want help, patient insisted on feeding himself.
[2019-11-18] MEDS: ENOXAPARIN SOD 30 MG/0.3 ML SYRINGE SC SCH (10:00)
--- NOTE | 2019-11-18 11:01 | NUR ---
T/C from patient's , Velma. Password verified. Updated on over night events, morning labs and new medications added by Dr Baires.
[2019-11-18] MEDS: LINEZOLID 600MG/300ML 300 ML IV SCH (11:25)
--- NOTE | 2019-11-18 13:00 | NUR ---
Dr Yan at bedside. Orders received.
--- NOTE | 2019-11-18 16:00 | NUR ---
Partial bath, linen change and dressing change completed. Patient tolerated well with premedication of Morphine.
[2019-11-18] MEDS: Glucerna Carbsteady SHAKE Vanilla 8oz PO SCH (17:52)
--- NOTE | 2019-11-18 18:45 | NUR ---
CLOSING SHIFT NOTE: Patient remains on specialty bed with no s/s of distress and connected to bedside monitor. Patient denies pain. Patient currently on Levophed at 6mcg/hr, Bumex at 1mg/hr and NaHCO3 at 60ml/hr. Calloway draining dark edison UOP, 250ml for shift. Patient continues to have poor appetite and refuses to let nursing staff assist in feeding him. Dressing to sacrum changed, continue to turn q2hr/PRN. Report to be given to oncoming RN.
--- NOTE | 2019-11-18 19:30 | NUR ---
Opening shift note Pt laying in bed on specialty mattress. Pt alert and oriented times four. Per day shift, pt has intermittent episodes of confusion. Will monitor mental status and reorient as needed. Full assessment done, see interventions. left upper chest port a cath. See IV spread sheet for infusion details. Levophed at 6mcg. On room air. With course lung sounds. Sores noted in mouth and per pt they are painful. Will medicate appropriately. Dr. Yan aware. Bilateral leg edema with weeping. Scotal edema with weeping. DTI to sacrum. Optifoam on. Pt with frequent repositioning. Calloway catheter intact, draining light edison urine, free of kinks. Bed locked in lowest position. All alarms on and audible. Will continue to monitor closely.
--- NOTE | 2019-11-18 20:00 | NUR ---
Pt saturations in high 80's. Audible wheezes heard. Placed pt on oxygen at 3lpm n.c. Sats reading high 90's now. Encouraged pt to cough and deep breathe.
--- NOTE | 2019-11-18 20:30 | NUR ---
Dinner Helped pt with dinner. Pt had a couple bites of food and then refused it. Will continue to encourage to eat more.
[2019-11-18] MEDS: GABAPENTIN 300 MG CAP PO SCH (21:57)
[2019-11-19] VITALS (91 sets, daily range): BP systolic 69–192; BP diastolic 38–121
[2019-11-19] MEDS: LINEZOLID 600MG/300ML 300 ML IV SCH ×3 (00:16→23:15)
[2019-11-19] MEDS: ALBUMIN 25% 100 ML IV SCH (00:21)
[2019-11-19] MEDS: MORPHINE SULF INJ 2 MG/ML SYRINGE 1ML IV PRN (00:40)
--- NOTE | 2019-11-19 01:05 | NUR ---
IV insertion IV access obtained, via clean sterile technique by inserting 22 gauge catheter to right forearm. IV secured properly. No trauma to site. Patient tolerated procedure well.
--- NOTE | 2019-11-19 04:00 | NUR ---
atm technician unable to draw from ptNgoc
[2019-11-19 04:20] LABS: Hematocrit 34.6 % (41.0-53.0); Hemoglobin 10.8 g/dL (13.5-17.5); Mean Corpuscular Hemoglobin 29.3 pg (28.0-32.0); Mean Corpuscular Hgb Conc. 31.2 g/dL (32.0-36.0); Mean Corpuscular Volume 94.2 fL (80.0-100.0); Platelet Count (auto) 131 10^3/uL (140-450); Red Blood Cells 3.67 10^6/uL (4.5-5.90); White Blood Cell 22.1 10^3/uL (4.4-10.8)
[2019-11-19 04:21] LABS: Red Cell Distribution Width 20.5 % (11.8-14.3)
[2019-11-19 04:25] LABS: Basophils % (manual) 0 (0.0-2.0); Blast Cells 0; Myelocytes % 0; Promyelocytes % 0; Reactive Lymphocytes 0
[2019-11-19 04:37] LABS: Potassium 4.6 mmol/L (3.5-5.1)
[2019-11-19 04:45] LABS: BUN/Creatinine Ratio 21.7; Calcium 8.1 mg/dL (8.5-10.1); Magnesium 2.4 mg/dL (1.6-2.6)
[2019-11-19 04:53] LABS: Band Neutrophils % (manual) 2; Eosinophils % (manual) 1 (0-7); Lymphocytes % (manual) 3 (10.0-50.0); Metamyelocytes % 1; Monocytes % (manual) 3 (0-12)
[2019-11-19] MEDS: NYSTATIN (MOUTH-THROAT) 500,000 UNITS/5 ML SUSP MT SCH ×4 (06:00→21:52)
[2019-11-19] MEDS: PIPERACILLIN-TAZOB 2.25GM 50 ML IV SCH ×4 (06:00→18:25)
[2019-11-19] MEDS: ACCU-CHEK COMFORT CURVE STRIP VI SCH ×4 (06:37→22:01)
[2019-11-19] MEDS: InsuLIN REG 1unit/0.01ml Soln (100units/ml) SC SCH ×4 (06:37→22:00)
[2019-11-19] MEDS: SODIUM BICARBONATE 50ML VIAL 150 ML in D5W 5% 1,000 ML IV SCH (07:32)
[2019-11-19] MEDS: BUMETANIDE INJECTION 25 MG in GIVE UN-DILUTED 0 ML IV SCH (07:38)
[2019-11-19] MEDS: Glucerna Carbsteady SHAKE Vanilla 8oz PO SCH ×3 (08:00→18:25)
[2019-11-19] MEDS: GABAPENTIN 300 MG CAP PO SCH ×2 (10:00→21:52)
[2019-11-19] MEDS: ENOXAPARIN SOD 30 MG/0.3 ML SYRINGE SC SCH (10:01)
--- NOTE | 2019-11-19 10:10 | NUR ---
DR. CASTELLANOS HERE TO SEE PATIENT. SEE MD NOTES AND EMR FOR ANY NEW ORDERS.
[2019-11-19] MEDS: NOREPINEPHRINE 8 MG/250ML KIT 250 ML IV SCH (12:00)
--- NOTE | 2019-11-19 13:00 | NUR ---
DR. MARINELLI HERE TO SEE PATIENT. SEE MD OTES AND EMR FOR ANY NEW ORDERS.
--- NOTE | 2019-11-19 13:05 | NUR ---
T/C from patient's , Velma. Password verified. Updated on over CURRENT events,FACT THAT PATIENT IS SLEEPING MORE, EATING LESS AND IS NO LONGER AWAKING TO ASK FOR PAIN MEDICATIONS. LAB TECHS CURRENTLY UNABLE TO DRAW morning labs BECAUSE PATIENT IS A VERY DIFFICULT STICK.
[2019-11-19] MEDS ORDERED: ALBUMIN 25% 100 ML IV ONE (13:15)
--- NOTE | 2019-11-19 17:10 | NUR ---
ACCU CHECK DONE BS WAS 167. PER DR. MARINELLI IF BS LESS THAN 200 HOLD REGULAR INSULIN. DAUGHTER BROOK AT BEDSIDE AND AWARE.
--- NOTE | 2019-11-19 18:21 | NUR ---
WANTS PATIENT TO BE A DNR. [address]. MARINELLI CALLED AND MADE AWARE AND IS AGREEABLE. WILL SIGN DNR CODE STATUS TOMORROW.
--- NOTE | 2019-11-19 18:22 | NUR ---
DR. BAXTER HERE TO SEE PATIENT. SEE MD NOTES AND EMR FOR ANY NEW ORDERS.
--- NOTE | 2019-11-19 20:30 | NUR ---
Nutrition Full assist with feeding. Pt refused dinner. encouraged pt to drink water or ensure drink.
[2019-11-20] VITALS (56 sets, daily range): BP systolic 78–113; BP diastolic 40–78
[2019-11-20] MEDS: SODIUM BICARBONATE 50ML VIAL 150 ML in D5W 5% 1,000 ML IV SCH (04:30)
--- NOTE | 2019-11-20 04:58 | NUR ---
Cares/ wound care Pt premedicated with pain medicine. Pt given full bed bath. Sacral wound bleeding, cleansed with soap and water, pat dry and applied z guard. Covered with Optifoam. Small BM noted. Calloway care done; Discharge around penis noted. Cleansed with soap and water. Zguard applied to excoriation in groin. Scrotal edema leaking serous fluid. Bilateral edematous lower extremities leaking serous fluid and and open skin noted with redness.
[2019-11-20] MEDS: NYSTATIN (MOUTH-THROAT) 500,000 UNITS/5 ML SUSP MT SCH ×2 (06:01→12:00)
[2019-11-20] MEDS: InsuLIN REG 1unit/0.01ml Soln (100units/ml) SC SCH ×2 (06:01→11:30)
[2019-11-20] MEDS: PIPERACILLIN-TAZOB 2.25GM 50 ML IV SCH ×3 (06:01→12:00)
[2019-11-20] MEDS: ACCU-CHEK COMFORT CURVE STRIP VI SCH ×2 (06:02→11:42)
--- NOTE | 2019-11-20 06:47 | NUR ---
Family updated on pt status. All questions and concerns addressed at this time.
[2019-11-20] MEDS ORDERED: ALBUMIN 25% 100 ML IV SCH (07:00)
[2019-11-20] MEDS: Glucerna Carbsteady SHAKE Vanilla 8oz PO SCH ×2 (08:21→12:00)
--- NOTE | 2019-11-20 08:30 | NUR ---
Nutrition MAX assist with feeding. Pt refused BREAKFAST. PATIENT IS REFUSING WATER And ensure drink.
[2019-11-20] MEDS: GABAPENTIN 300 MG CAP PO SCH (10:00)
[2019-11-20] MEDS: ENOXAPARIN SOD 30 MG/0.3 ML SYRINGE SC SCH (10:10)
[2019-11-20] MEDS: LINEZOLID 600MG/300ML 300 ML IV SCH (10:10)
[2019-11-20] MEDS: NOREPINEPHRINE 8 MG/250ML KIT 250 ML IV SCH (10:12)
[2019-11-20] MEDS: MORPHINE SULF INJ 2 MG/ML SYRINGE 1ML IV PRN ×2 (10:12→15:16)
--- NOTE | 2019-11-20 11:15 | NUR ---
D/C Planning Per consult for Hospice evaluation. Patient Velma requested [facility]. Faxed clinical information to [facility]. Per Nahun with [facility] Ph:) patient has been accepted and they will see patient upon d/c day. Transportation has been arranged with [facility]:) via gurney with oxygen at 15:00. RADHA Abrams was informed.
[2019-11-20] MEDS ORDERED: GABAPENTIN 300 MG CAP PO SCH (14:00)
--- NOTE | 2019-11-20 14:51 | NUR ---
FAMILY AT BEDSIDE, PATIENT WILL BE GOING HOME WITH HOSPICE.
--- NOTE | 2019-11-20 15:13 | NUR ---
PATIENT DISCHARGED HOME WITH FAMILY AT SIDE. [facility] HAS PATIENT ON GURNEY.
== END 2019-11-20 15:13 | disposition hospice, home (50) | DRG 871 ==
LOC: ER 21:19 → EDUNIT# 21:19 → OVERFLOW 21:20 → EAST 11-12 10:32 → OVERFLOW 11-12 18:05 → ICU WEST 11-14 16:32
PROVIDERS: ADMIT Internal Medicine Geriatric Medicine; ATTEND Internal Medicine Geriatric Medicine
DX: A41.9 Sepsis, unspecified organism (principal); E43 Unspecified severe protein-calorie malnutrition; R65.21 Severe sepsis with septic shock; N17.0 Acute kidney failure with tubular necrosis; J18.9 Pneumonia, unspecified organism; L03.115 Cellulitis of right lower limb; L03.116 Cellulitis of left lower limb; C78.7 Secondary malignant neoplasm of liver and intrahepatic bile duct; C19 Malignant neoplasm of rectosigmoid junction; E87.1 Hypo-osmolality and hyponatremia; N39.0 Urinary tract infection, site not specified; C78.00 Secondary malignant neoplasm of unspecified lung; Z68.41 Body mass index [BMI] 40.0-44.9, adult; N18.3 Chronic kidney disease, stage 3 (moderate); E11.22 Type 2 diabetes mellitus with diabetic chronic kidney disease; I12.9 Hypertensive chronic kidney disease with stage 1 through stage 4 chronic kidney disease, or unspecified chronic kidney disease; D63.1 Anemia in chronic kidney disease; E87.5 Hyperkalemia; Z85.048 Personal history of other malignant neoplasm of rectum, rectosigmoid junction, and anus; R34 Anuria and oliguria; E11.65 Type 2 diabetes mellitus with hyperglycemia; K72.90 Hepatic failure, unspecified without coma; Z20.828 Contact with and (suspected) exposure to other viral communicable diseases; Z51.5 Encounter for palliative care; Z66 Do not resuscitate; N40.0 Benign prostatic hyperplasia without lower urinary tract symptoms; Z80.0 Family history of malignant neoplasm of digestive organs; Z82.49 Family history of ischemic heart disease and other diseases of the circulatory system; Z92.21 Personal history of antineoplastic chemotherapy; Z96.653 Presence of artificial knee joint, bilateral; Z79.899 Other long term (current) drug therapy; Z93.2 Ileostomy status; Z79.4 Long term (current) use of insulin
CPT/HCPCS: 36415; 71045; 80048; 80053; 81001; 82962; 83605; 83735; 85007; 85025; 85027; 85610; 85730; 87040; 87070; 87081; 87086; 87804; 87880; 93005; 93926; 93970; 96361; 96365; 96368; 96374; 96375; 96376; G0378; J0696; J1815; J2405; J2543; J3490; P9047